=== PATIENT | female | born 1965 | race Caucasian/White ===

== ENCOUNTER 2018-11-12 12:30 | Day surgery (SDC) | payer OTHER ==
[2018-11-12] MEDS ORDERED: MIDAZOLAM 1 MG/ML 2 ML INJ ×3 (14:35)
[2018-11-12] MEDS ORDERED: FENTAnyl 50 MCG/ML VIAL (14:35)
== END 2018-11-12 15:25 | disposition home or self-care (01) ==
LOC: GIL 12:30
DX: Z12.11 Encounter for screening for malignant neoplasm of colon (principal); I10 Essential (primary) hypertension
CPT/HCPCS: 45378